=== PATIENT | female | born 1985 | race Caucasian/White ===

== ENCOUNTER 2019-09-10 23:15 | Emergency (ER) | payer OTHER ==
[~2019-09-10] VITALS: Ht 165.1 cm; Wt 59.0 kg
[~2019-09-10 23:15] MED LIST: CIPROFLOXACIN500 M1 PO; IBUPROFEN 800800 MG PO; NYQUIL
[2019-09-10 23:53] LABS: INFLUENZA A ANTIGEN Negative (Negative); INFLUENZA B ANTIGEN Negative (Negative)
[2019-09-10 23:57] LABS: URINE BILIRUBIN NEGATIVE (Negative); URINE BLOOD NEGATIVE (Negative); URINE CLARITY CLEAR; URINE COLOR YELLOW; URINE GLUCOSE-RANDOM NEGATIVE (Negative); URINE KETONES NEGATIVE (Negative); URINE PROTEIN NEGATIVE (Negative); URINE SPECIFIC GRAVITY 1.015 (1.005-1.030); URINE UROBILINOGEN 0.2 E.U./dl (0.2-1.0)
[2019-09-10 23:58] LABS: URINE LEUKOCYTES-REFLEX 2+ (Negative); URINE NITRITE-REFLEX POSITIVE (Negative)
[2019-09-11 00:06] LABS: MUCUS 4-6 Moderate strn/LPF (None Seen); SQUAMOUS >10 Many /LPF (0-3)
[2019-09-11 00:07] LABS: BACTERIA-REFLEX >30 Many /HPF (None Seen); CASTS None Seen /LPF (None Seen); CRYSTALS None Seen /LPF (None Seen); URINE WBC-REFLEX 6-15 Few /HPF (0-5)
[2019-09-11 00:08] LABS: URINE RBC 0-2 Rare /HPF (0-2)
[2019-09-11] MEDS ORDERED: BACTRIM DS TAB1 EACH PO (00:17)
[2019-09-11] MEDS ORDERED: PROMETH-CODEIN 65 ML PO (00:17)
[2019-09-11 00:27] VITALS: BP 118/62
== END 2019-09-11 00:27 | disposition home or self-care (01) ==
LOC: M.ERS 23:15
PROVIDERS: Emergency Medicine
DX: J06.9 Acute upper respiratory infection, unspecified (principal); N39.0 Urinary tract infection, site not specified

== ENCOUNTER 2019-11-08 20:02 | Emergency (ER) | payer OTHER, MEDICAID ==
[~2019-11-08] VITALS: Ht 165.1 cm; Wt 59.0 kg
[~2019-11-08 20:02] MED LIST changes: +BACTRIM DS TAB1 EACH PO; +PROMETH-CODEIN 65 ML PO
[2019-11-08 21:00] LABS: INFLUENZA A ANTIGEN Negative (Negative); INFLUENZA B ANTIGEN Negative (Negative)
[2019-11-08] MEDS ORDERED: FLONASE 0.05%50 MCG NARES (21:19)
[2019-11-08] MEDS ORDERED: AMOXICILLIN 50500 MG PO (21:19)
[2019-11-08 21:28] VITALS: BP 106/66
== END 2019-11-08 21:28 | disposition home or self-care (01) ==
LOC: M.ERS 20:02
PROVIDERS: Nurse Practitioner Family
DX: J06.9 Acute upper respiratory infection, unspecified (principal); Z79.899 Other long term (current) drug therapy

== ENCOUNTER 2019-12-24 21:18 | Emergency (ER) | payer OTHER ==
[~2019-12-24] VITALS: Ht 165.1 cm; Wt 59.0 kg
[~2019-12-24 21:18] MED LIST changes: +AMOXICILLIN 50500 MG PO; +FLONASE 0.05%50 MCG NARES
[2019-12-24 22:26] LABS: INFLUENZA A ANTIGEN Negative (Negative); INFLUENZA B ANTIGEN Negative (Negative)
[2019-12-25] MEDS ORDERED: PROMETH-CODEIN 65 ML PO (01:31)
[2019-12-25 02:00] VITALS: BP 139/91
== END 2019-12-25 02:00 | disposition home or self-care (01) ==
LOC: M.ERS 21:18
PROVIDERS: Emergency Medicine
DX: J06.9 Acute upper respiratory infection, unspecified (principal)